=== PATIENT | male | born 1965 | race Caucasian/White ===

== ENCOUNTER 2020-12-04 21:28 | Inpatient (IN) | payer MEDICAID, SELFPAY ==
[~2020-12-04] VITALS: Ht 165.1 cm; Wt 84.4 kg
[2020-12-04 21:28] VITALS: BP_SYST 154
--- NOTE | 2020-12-04 21:28 | NUR ---
Placed in room 6 . Placed on cardiac monitor technician, blood pressure machine and pulse oximeter. To gown for exam. Side rails up. Report given to Kristal.
--- NOTE | 2020-12-04 21:30 | NUR ---
# 20 gauge angiocath placed to left forearm placed by Fire prior to arrival. Flushed with 10 cc of normal saline. No evidence of infiltration noted. Patient tolerated well.
--- NOTE | 2020-12-04 21:45 | NUR ---
Assumed total care of patient. Patient awake, alert, and confused GCS 14 BIB ALS from home c/o hyperglycemic episode of 342 in field prior to arrival. Upon arrival patients Blood sugar was 302. Patient placed on court monitor, VSS, breathing even and unlabored, no signs of acute distress noted. Patient has history of diabetes and takes glipizide and metformin at home. Patient IV patent with no signs of infiltration. Patient received about 100mLs of NS in field prior to arrival. Will continue to monitor. Patient denies nausea, vomiting, headache, diaphoresis.
[2020-12-04] MEDS ORDERED: METO50TA16 PO (21:52)
[2020-12-04] MEDS ORDERED: FURO-150 PO (21:52)
[2020-12-04] MEDS ORDERED: NITSL SL (21:52)
[2020-12-04] MEDS ORDERED: GLU500 PO (21:52)
[2020-12-04] MEDS ORDERED: GLIP5TAB26 PO (21:52)
--- NOTE | 2020-12-04 21:54 | NUR ---
500mL of Normal saline infusing as bolus per MD orders. No signs of infiltration.
--- NOTE | 2020-12-04 22:00 | NUR ---
Patient has history of CHF. IV fluids discontinued.
--- NOTE | 2020-12-04 22:25 | NUR ---
Lab at bedside for blood draw.
[2020-12-04 22:50] LABS: EOSINOPHILS # (AUTO) 0.1 K/uL (0.0-0.4); HEMOGLOBIN 14.6 g/dL (14.0-18.0); MONOCYTES # (AUTO) 0.6 K/uL (0.0-1.0); RED BLOOD CELL COUNT(AUTO) 4.46 MIL/uL (4.2-6.2); WHITE BLOOD COUNT (AUTO) 5.3 K/uL (4.8-10.8)
[2020-12-04 22:54] LABS: BASOPHILS % (AUTO) 0.7 % (0.0-2.0); EOSINOPHILS % (AUTO) 2.2 % (0.0-4.0); HEMATOCRIT 41.4 % (36-54); LYMPHOCYTES # (AUTO) 1.9 K/uL (1.0-5.5); LYMPHOCYTES % (AUTO) 35.3 % (20.5-51.5); MEAN CORPUSCULAR HEMOGLOBIN 33 pg (27-31); MEAN CORPUSCULAR HGB CONC 35 % (32-36); MEAN CORPUSCULAR VOLUME 93 fL (79.0-98.0); MONOCYTES % (AUTO) 10.9 % (1.7-9.3); NEUTROPHILS # (AUTO) 2.7 K/uL (1.8-7.7); NEUTROPHILS % (AUTO) 50.9 % (40.0-70.0); PLATELET COUNT (AUTO) 134 K/uL (130-430); RED CELL DISTRIBUTION WIDTH 14.4 % (9.0-15.0)
[2020-12-04] MEDS ORDERED: SIMV40TA2 PO (22:55)
[2020-12-04] MEDS ORDERED: SPIR50TA PO (22:55)
[2020-12-04] MEDS ORDERED: PROP10TA10 PO (22:55)
[2020-12-04] MEDS ORDERED: METF1000 PO (22:55)
[2020-12-04] MEDS ORDERED: SECU150P2 SQ (22:55)
[2020-12-04] MEDS ORDERED: METO25TA3 PO (22:55)
[2020-12-04] MEDS ORDERED: OMEP20TA20 PO (22:55)
[2020-12-04] MEDS ORDERED: ASPI-859 PO (22:55)
[2020-12-04] MEDS ORDERED: LACT10SO6 PO (22:55)
[2020-12-04] MEDS ORDERED: RIFA550T5 PO (22:55)
--- NOTE | 2020-12-04 22:55 | NUR ---
Medication reconciliation completed with information provided by PATIENT'S SISTER. Any prior medication reconciliation on file was reviewed and corrected.
[2020-12-04 23:14] LABS: CALCIUM 9.1 mg/dL (8.4-11.0); CREATININE 1.12 mg/dL (0.55-1.30); POTASSIUM 4.3 mmol/L (3.5-5.1)
--- NOTE | 2020-12-04 23:14 | NUR ---
ER Dr. Buenrostro at bedside examining patient.
--- NOTE | 2020-12-04 23:20 | NUR ---
Accucheck - blood sugar 270. aware
--- NOTE | 2020-12-04 23:24 | NUR ---
Patient reports he does not have to urinate at this time. aware.
[2020-12-05] MEDS ORDERED: GOLYTELY / COLYTE SOLUTION 4 LITERS PO ONE (00:45)
--- NOTE | 2020-12-05 01:51 | NUR ---
Patient given the golytely at bedside. Patient having to been waken up multiple times to remind him to drink it.
--- NOTE | 2020-12-05 02:28 | NUR ---
[facility] DO[facility] OF RAD[facility]OLOGY, CALLED BACK GAVE VERBAL AUTHORIZATION TO ADMIT TO TELEMETRY.
--- NOTE | 2020-12-05 02:46 | NUR ---
Patient has not been drinking medication on his own. aware. Orders received for NG tube placement.
--- NOTE | 2020-12-05 03:15 | NUR ---
# 16 FR NG tube placed to RIGHT nare. Placement checked by auscultation of instilled air into stomach and aspiration of gastric contents. Tubing taped in place to prevent dislodging. Patient tolerated WELL.
--- NOTE | 2020-12-05 04:10 | NUR ---
NG tube placement confirmed with xray by Dr. Buenrostro.
--- NOTE | 2020-12-05 04:20 | NUR ---
Golytely being administered through NG tube per MD orders.
--- NOTE | 2020-12-05 04:25 | NUR ---
Received admit orders from Dr. Brooks
--- NOTE | 2020-12-05 04:26 | NUR ---
Patient will be admitted to care of Dr. Brooks. Admitted to Medsurg unit. Will go to room pending. Belongings list completed. Complete and up to date summary report printed. SBAR report to be given at bedside with opportunity for questions.
--- NOTE | 2020-12-05 04:33 | NUR ---
Notified tightening machine operator on TELE of admission & requested bed.
--- NOTE | 2020-12-05 05:36 | NUR ---
patient will be going to 112A. report to be given at bedside.
--- NOTE | 2020-12-05 05:37 | NUR ---
Transfer to [facility]. IV present no sign or symptom of infiltration.
[2020-12-05] MEDS ORDERED: METOCLOPRAMIDE HCL 10 MG/2 ML VIAL ONE (05:51)
[2020-12-05] MEDS ORDERED: METOCLOPRAMIDE HCL 10 MG/2 ML VIAL IVP PRN (06:00)
[2020-12-05] MEDS ORDERED: ONDANSETRON HCL 4 MG/2 ML VIAL IVP PRN (06:00)
[2020-12-05] MEDS ORDERED: DEXTROSE 50% JECT 50 ML DISP.SYRIN IVP PRN (06:00)
[2020-12-05] MEDS ORDERED: MORPHINE 2 MG/ML INJ. SYRINGE IVP PRN (06:00)
[2020-12-05] MEDS ORDERED: ACETAMINOPHEN 325 MG TABLET PO PRN (06:00)
[2020-12-05] MEDS ORDERED: METOCLOPRAMIDE HCL 10 MG/2 ML VIAL IVP ONE (06:00)
[2020-12-05] MEDS: LACTULOSE 20 GM/30 ML UDC PO SCH ×4 (06:00→21:00)
--- NOTE | 2020-12-05 06:00 | NUR ---
ADMISSION NOTE Received patient from ER via gurney. Patient admitted with diagnosis of HEPATIC ENCEPHALOPATHY. Patient is awake, alert, oriented X 4. Patient oriented to hospital room, call light, toileting, pain management and safety-teach back done. Patient informed that DAMIEN will be HIS nurse and that their room number is 112A. Call light within reach.
[2020-12-05 06:15] VITALS: BP_SYST 128
[2020-12-05] MEDS: NACL 0.9% 1,000 ML IV SCH ×2 (06:20→16:36)
[2020-12-05] MEDS: INSULIN REGULAR, HUMAN 100 UNITS/ML, 10 ML VIAL (humuLIN R) SUBCUT PRN ×4 (06:25→23:33)
--- NOTE | 2020-12-05 07:32 | NUR ---
CLOSING NOTE PT RESTING IN BED, NO S/S OF ACUTE DISTRESS, NGT IS IN PLACE, IVF INFUSING AT ORDERED RATE. VITALS ARE STABLE. ADMISSION ENDORSED TO DAY SHIFT NURSE. SAFETY MAINTAINED. CALL LIGHT IS WITH PT.
--- NOTE | 2020-12-05 08:30 | NUR ---
AM NOTES NGT OUT, STATED HE HAD BM X2. STILL NPO. ALERT WITH SLIGHT OF CONFUSION WITH ELEVATED AMMONIA LEVEL, ON LACTULOSE ORDERED.
[2020-12-05] MEDS ORDERED: SPIRONOLACTONE 50 MG TABLET (ALDACTONE) PO SCH (09:00)
--- NOTE | 2020-12-05 10:00 | NUR ---
IV RE-INSERTION: IV LEAKING, NEW IV RE INSERTED ON RIGHT FOREARM.
[2020-12-05 10:40] VITALS: BP_SYST 153
--- NOTE | 2020-12-05 10:49 | NUR ---
CONSULTATION PAGED REASON FOR CONSULTATION:CHF WAS CONSULT CALLED?Y PERSON WHO WAS NOTIFIED:GENE CONSULTING PHYSICIAN:ABRIL MEI [employer] LEAD DEVELOPER SPECIALTY:[employer] PHONE NUMBER:[phone] REQUESTING PHYSICIAN:KELLY RUDD
[2020-12-05] MEDS: RIFAXIMIN 550 MG TABLET PO SCH ×2 (11:02→21:00)
[2020-12-05 11:14] LABS: BASOPHILS % (AUTO) 0.5 % (0.0-2.0); EOSINOPHILS # (AUTO) 0.1 K/uL (0.0-0.4); EOSINOPHILS % (AUTO) 1.6 % (0.0-4.0); HEMATOCRIT 41.9 % (36-54); HEMOGLOBIN 14.6 g/dL (14.0-18.0); LYMPHOCYTES # (AUTO) 1.8 K/uL (1.0-5.5); LYMPHOCYTES % (AUTO) 36.1 % (20.5-51.5); MEAN CORPUSCULAR HEMOGLOBIN 33 pg (27-31); MEAN CORPUSCULAR HGB CONC 35 % (32-36); MEAN CORPUSCULAR VOLUME 94 fL (79.0-98.0); MONOCYTES # (AUTO) 0.6 K/uL (0.0-1.0); MONOCYTES % (AUTO) 13.2 % (1.7-9.3); NEUTROPHILS # (AUTO) 2.4 K/uL (1.8-7.7); NEUTROPHILS % (AUTO) 48.6 % (40.0-70.0); PLATELET COUNT (AUTO) 129 K/uL (130-430); RED BLOOD CELL COUNT(AUTO) 4.46 MIL/uL (4.2-6.2); RED CELL DISTRIBUTION WIDTH 15.1 % (9.0-15.0); WHITE BLOOD COUNT (AUTO) 4.9 K/uL (4.8-10.8)
[2020-12-05 11:20] LABS: CREATININE 0.92 mg/dL (0.55-1.30); POTASSIUM 5.4 mmol/L (3.5-5.1)
[2020-12-05 11:21] LABS: INR 1.3 (0.80-1.20); PROTHROMBIN TIME 13.3 SECS (9.5-12.5)
[2020-12-05 11:35] LABS: ALBUMIN 2.9 g/dL (3.4-4.8); THYROID STIMULATING HORMONE 1.6 uIu/mL (0.34-4.82)
[2020-12-05 11:40] LABS: TOTAL BILIRUBIN 2.1 mg/dL (0.0-1.0)
--- NOTE | 2020-12-05 12:00 | NUR ---
NOTES PATIENT WANTED TO EAT, VERY FRUSTRATED, UNCOOPERATIVE, SPOKE TO DR JULES, ON FULL LIQUID DIET. FOR ECHO AND ABDOMINAL ULTRASOUND.
[2020-12-05] MEDS ORDERED: METOPROLOL SUCCINATE 50 MG TAB.SR.24H (TOPROL XL) PO ONE (12:30)
[2020-12-05] MEDS ORDERED: FUROSEMIDE 20 MG TABLET PO ONE (12:30)
[2020-12-05 12:48] VITALS: BP_SYST 125
--- NOTE | 2020-12-05 15:00 | NUR ---
NOTES ECHO AND ABDOMINAL US DONE.
[2020-12-05 15:49] VITALS: BP_SYST 168
[2020-12-05 16:51] VITALS: BP_SYST 158
--- NOTE | 2020-12-05 17:00 | NUR ---
NOTES BLOOD SUGAR 566, REGULAR INSULIN [address] JULES. DIET CHANGED TO SOFT DIABETIC DIET, WILL CONTINUE TO MONITOR.
[2020-12-05 20:00] VITALS: BP_SYST 158
--- NOTE | 2020-12-05 22:00 | NUR ---
ROUNDING NOTES Patient resting in bed - no s/s pain or distress noted. Respirations even and unlabored - head of bed elevated. IV site patent - no s/s redness, infection, or infiltration. Skin warm and dry no s/s hypoglycemia. Bed locked and in lowest position. Call light within reach.
[2020-12-06 00:30] VITALS: BP_SYST 123
[2020-12-06] MEDS: INSULIN REGULAR, HUMAN 100 UNITS/ML, 10 ML VIAL (humuLIN R) SUBCUT PRN ×4 (05:29→23:02)
[2020-12-06 08:00] VITALS: BP_SYST 116
[2020-12-06] MEDS: LACTULOSE 20 GM/30 ML UDC PO SCH ×3 (09:07→20:22)
[2020-12-06] MEDS: METOPROLOL SUCCINATE 50 MG TAB.SR.24H (TOPROL XL) PO SCH (09:09)
[2020-12-06] MEDS: FUROSEMIDE 20 MG TABLET PO SCH (09:09)
[2020-12-06 12:28] VITALS: BP_SYST 129
[2020-12-06] MEDS: RIFAXIMIN 550 MG TABLET PO SCH ×2 (13:37→20:22)
--- NOTE | 2020-12-06 16:06 | NUR ---
OPENING NOTES LATE ENTRY DUE TO PT CARE 0715- RECEIVED REPORT FROM PRINCESS CHAVEZ. PATIENT SITTING AT THE EDGE OF THE BED. DENIED DISCOMFORT OR PAIN AT THIS TIME. PLAN OF CARE DISCUSSED. PT VERBALIZED UNDERSTANDING 1130- ACCUCHECK ONE, 6 UNITS REGULAR INSULIN SQ GIVEN 14:00 FAMILY AT BED SIDE. PT EATING A BOWL OF [place]. DENIES PAIN OR DISCOMFORT AT THIS TIME
[2020-12-06 17:35] VITALS: BP_SYST 59
[2020-12-06] MEDS: NACL 0.9% 1,000 ML IV SCH (17:47)
--- NOTE | 2020-12-06 18:47 | NUR ---
CLOSING DOES NOT APPEAR TO BE IN DISTRESS. PATIENT NEEDS ATTENDED. NO COMPLAINTS.
[2020-12-06 20:00] VITALS: BP_SYST 109
--- NOTE | 2020-12-06 22:00 | NUR ---
ROUNDING NOTES Patient resting in bed - no s/s pain or distress noted. Respirations even and unlabored - head of bed elevated. IV site patent - no s/s redness, infection, or infiltration. Skin warm and dry - no s/s hypoglycemia. Bed locked and in lowest position. Call light within reach - bed alarm on.
[2020-12-07] VITALS: BP_SYST 110
[2020-12-07] MEDS: INSULIN REGULAR, HUMAN 100 UNITS/ML, 10 ML VIAL (humuLIN R) SUBCUT PRN ×2 (05:52→12:17)
[2020-12-07 08:00] VITALS: BP_SYST 143
--- NOTE | 2020-12-07 08:00 | NUR ---
OPENING NOTES AWAKE AND ORIENTED. NO SHORTNESS OF BREATH ON ROOM AIR. DENIES ANY PAIN. IV FLUID INFUSING WELL. AMBULATORY AND INDEPENDENT. SAFETY CHECKS DONE. CALL LIGHT WITHIN REACH. WILL MONITOR.
[2020-12-07] MEDS: LACTULOSE 20 GM/30 ML UDC PO SCH (08:58)
[2020-12-07] MEDS: RIFAXIMIN 550 MG TABLET PO SCH (08:58)
[2020-12-07] MEDS: FUROSEMIDE 20 MG TABLET PO SCH (09:02)
[2020-12-07] MEDS: METOPROLOL SUCCINATE 50 MG TAB.SR.24H (TOPROL XL) PO SCH (09:02)
--- NOTE | 2020-12-07 09:30 | NUR ---
MED PASS AND MD ROUNDS DR. KIM SAW PATIENT AT BEDSIDE. PER MD, HE WILL WRITE A PRESCRIPTION FOR ENTRESTO. SAFETY CHECKS DONE. WILL MONITOR.
--- NOTE | 2020-12-07 11:00 | NUR ---
DISCHARGE EXPLAINED TO PATIENT THAT HE IS CLEARED FOR DISCHARGE BUT ACCORDING TO HIM, NO ONE WILL PICK HIM UP BECAUSE HIS SISTER IS AT WORK RIGHT NOW IN [place]
[2020-12-07 12:27] VITALS: BP_SYST 120
[2020-12-07] MEDS ORDERED: SACUBITRIL/VALSARTAN 24 MG-26 MG 1 TABLET PO SCH (21:00)
== END 2020-12-07 12:50 | disposition home or self-care (01) | DRG 279 ==
LOC: SED 21:28 → SMU 12-05 04:25
PROVIDERS: ADMIT Internal Medicine Hospice and Palliative Medicine; ATTEND Internal Medicine Hospice and Palliative Medicine
DX: K72.90 Hepatic failure, unspecified without coma (principal); I50.43 Acute on chronic combined systolic (congestive) and diastolic (congestive) heart failure; E87.1 Hypo-osmolality and hyponatremia; I42.9 Cardiomyopathy, unspecified; I11.0 Hypertensive heart disease with heart failure; E11.65 Type 2 diabetes mellitus with hyperglycemia; E87.5 Hyperkalemia; K21.9 Gastro-esophageal reflux disease without esophagitis; E78.5 Hyperlipidemia, unspecified; K74.60 Unspecified cirrhosis of liver; Z20.822 Contact with and (suspected) exposure to COVID-19; Z79.01 Long term (current) use of anticoagulants; Z79.899 Other long term (current) drug therapy; Z95.810 Presence of automatic (implantable) cardiac defibrillator; Z79.82 Long term (current) use of aspirin
CPT/HCPCS: 36415; 71045; 76700-TC; 80048; 80053; 82140; 82962; 83036; 84443; 85025; 85610-TC; 93306; 96374; 99285; J1815; J2765